=== PATIENT | male | born 1995 | race Caucasian/White ===

== ENCOUNTER 2023-10-10 18:27 | Emergency (ER) | payer BC ==
[2023-10-10] MEDS ORDERED: Ketorolac Tromethamine 30 MG/ML VIAL ONE (19:09)
[2023-10-10] MEDS ORDERED: Boostrix 0.5 ML (Tdap) VIAL (>/=7 yrs of age) ONE (19:09)
== END 2023-10-10 20:23 | disposition short-term general hospital (02) ==
LOC: ERS 18:27
DX: T23.351A Burn of third degree of right palm, initial encounter (principal); T23.251A Burn of second degree of right palm, initial encounter; X08.8XXA Exposure to other specified smoke, fire and flames, initial encounter; Z23 Encounter for immunization
CPT/HCPCS: 90471; 90715; 96374; J1885